=== PATIENT | male | born 1945 | race Caucasian/White ===

== ENCOUNTER 2017-09-11 18:09 | Inpatient (IN) | payer MEDICARE, OTHER ==
[~2017-09-11] VITALS: Ht 180.3 cm; Wt 90.5 kg
[~2017-09-11 18:09] MED LIST: AMLO5TAB22 PO; KCL10C PO; OMEP20CA5; PRAV20 PO; PRED20 PO; ST JTAB PO; SUPETAB30 PO; ZITH250T PO
[2017-09-11 18:13] VITALS: BP 188/128; PULSE 99; RESP 19; TEMP 98; O2SAT 97
[2017-09-11] MEDS ORDERED: SODIUM CHLOR 0.9% 1000 ML INJ 1,000 ML IV ONE (19:15)
[2017-09-11] MEDS ORDERED: ONDANSETRON HCL 4 MG/2 ML VIAL IV PUSH PRN (19:15)
[2017-09-11] MEDS ORDERED: LORazepam 2 MG/ML VIAL IV PUSH ONE (19:15)
[2017-09-11] MEDS ORDERED: FLUMAZENIL 0.5 MG/5 ML VIAL IV PUSH PRN (19:15)
[2017-09-11] MEDS ORDERED: LORazepam 2 MG/ML VIAL IV PUSH PRN ×4 (19:15)
[2017-09-11 19:46] LABS: AUTOMATED NEUTROPHIL # 7.4 TH/MM3 (1.8-7.7); BASOPHIL # 0.1 TH/MM3 (0-0.2); BASOPHIL % 0.6 % (0.0-2.0); EOSINOPHIL % 0.3 % (0.0-4.0); HEMATOCRIT 45.8 % (39.0-51.0); HEMOGLOBIN 16.2 GM/DL (13.0-17.0); LYMPH % 15.3 % (9.0-44.0); LYMPHOCYTE # 1.5 TH/MM3 (1.0-4.8); MEAN CELL VOLUME 92.4 FL (80.0-100.0); MEAN CORPUSCULAR HEMOGLOBIN 32.7 PG (27.0-34.0); MEAN CORPUSCULAR HGB CONC 35.3 % (32.0-36.0); MEAN PLATELET VOLUME 7.4 FL (7.0-11.0); MONO % 6.7 % (0.0-8.0); MONOCYTE # 0.6 TH/MM3 (0-0.9); NEUT % 77.1 % (16.0-70.0); PLATELET COUNT 258 TH/MM3 (150-450); RED BLOOD COUNT 4.95 MIL/MM3 (4.50-5.90); RED CELL DISTRIBUTION WIDTH 14.1 % (11.6-17.2); WHITE BLOOD COUNT 9.6 TH/MM3 (4.0-11.0)
[2017-09-11 19:56] LABS: ALBUMIN 4.4 GM/DL (3.4-5.0); ALT (GPT) 34 U/L (12-78); AST (GOT) 40 U/L (15-37); BICARBONATE 20.6 MEQ/L (21.0-32.0); BLOOD UREA NITROGEN 19 MG/DL (7-18); CALCIUM 9.1 MG/DL (8.5-10.1); CHLORIDE 103 MEQ/L (98-107); CREATININE 0.82 MG/DL (0.60-1.30); GLOMERULAR FILTRATION RATE 92 ML/MIN (>89); GLUCOSE,RANDOM 71 MG/DL (74-106); SODIUM (NA) 138 MEQ/L (136-145)
--- NOTE | 2017-09-11 20:01 | RADRPT ---
EXAM DATE/TIME: 09/11/2017 19:19 [facility] COMPARISON: No previous studies available for comparison. INDICATIONS : Trauma; fall. RADIATION DOSE: 48.30 CTDIvol (mGy) MEDICAL HISTORY : Cardiovascular disease. Hypertension. Gastroesophageal reflux disease.Leukemia, ETOH abuse SURGICAL HISTORY : None. ENCOUNTER: Initial ACUITY: 1 day PAIN SCALE: 5/10 LOCATION: cranial TECHNIQUE: Multiple contiguous axial images were obtained of the head. Using automated exposure control and adj ustment of the mA and/or kV according to patient size, radiation dose was kept as low as reasonably a chievable to obtain optimal diagnostic quality images. DICOM format image data is available electro nically for review and comparison. FINDINGS: CEREBRUM: The ventricles are normal for age. No evidence of midline shift, mass lesion, hemorrhage or acute in farction. No extra-axial fluid collections are seen. POSTERIOR FOSSA: The cerebellum and brainstem are intact. The 4th ventricle is midline. The cerebellopontine angle i s unremarkable. EXTRACRANIAL: The visualized portion of the orbits is intact. SKULL: The calvaria is intact. No evidence of skull fracture. CONCLUSION: No acute findings in the brain. Hung Rojas MD on September 11, 2017 at 19:57 Board Certified Radiologist. This report was verified electronically.
--- NOTE | 2017-09-11 20:05 | PD ---
HPI Chief Complaint: Alcohol/Drug Intoxication Time Seen by Provider: 18:54 Travel History International Travel<30 days: No Contact w/Intl Traveler<30days: No Traveled to known affect area: No History of Present Illness HPI 72-year-old male that presents to the ED for evaluation of "the shakes". Per patient and friends who are present in the room his been abusing alcohol a lot more recently. Per patient he has a history of depression although he has not been diagnosed with a his been dealing with depression by drinking alcohol. Per patient he lives at an [facility] and when asked why the patient has not seen a psychiatrist she says that "the nurse will not let me ". Unclear as to if patient has seen anybody for this but appears that patient has been having some falls and per friends in the room he apparently today told them that he wanted to end his life with alcohol and when the friend's went to see him today in his assisted living facility he was on the floor having fallen today. Per patient he last drank last night. Per patient he has had shakes in the past but the tremor has been more severe this time. Doesn't seem to be going away. Mainly on the upper extremities. Denies any history of seizures. Denies hitting his head or losing consciousness at that he cannot really tell me if he fell or not. He does tell me that he has fallen multiple times the past couple of days. Patient denies any substance abuse. Per patient he believes that he takes blood thinners but he is not sure as to why he takes. Smells heavily of alcohol. PFSH Past Medical History Anxiety: Yes Depression: Yes Cancer: Yes (LEUKEMIA-REMISSION) Cardiac Catheterization: Yes Cardiovascular Problems: Yes High Cholesterol: Yes Diminished Hearing: No Gastrointestinal Disorders: Yes GERD: Yes Genitourinary: Yes (ENLARGED PROSTATE; FREQ UTI'S) Hypertension: Yes Psychiatric: Yes (HX OF A NERVOUS BREAKDOWN) Ulcer: Yes Past Surgical History Coronary Stent: Yes (04/2013) Other Surgery: No Social History Alcohol Use: Yes ("A LOT") Tobacco Use: Yes (2 PPD) Substance Use: No Allergies-Medications (Allergen,Severity, Reaction): Coded Allergies: No Known Allergies (Verified Adverse Reaction, Unknown, 09/11/17) Reported Meds & Prescriptions Reported Meds & Active Scripts Active Deltasone 20 Mg Tab (Prednisone) 20 Mg Tab 20 Mg PO BID 5 Days Zithromax Z-Rom (Azithromycin) 250 Mg Tab 250 Mg PO DIRECTED 500 MG (2 TABLETS) PO ON DAY 1, THEN 250 MG (1 TABLET) PO ON DAYS 2 TO 5. Reported Celebrex (Celecoxib) 100 Mg Cap 100 Mg PO BID Gabapentin 100 Mg Cap 100 Mg PO TID Potassium Chloride ER (Potassium Chloride) 10 Meq Cap 10 Meq PO DAILY Coumadin (Warfarin) 2 Mg Tab 2 Mg PO DAILY Aspirin 81 Mg Chew 81 Mg CHEW DAILY Amlodipine (Amlodipine Besylate) 5 Mg Tab 5 Mg PO DAILY Pravastatin 20 Mg Tab 20 Mg PO DAILY Trazodone (Trazodone HCl) 100 Mg Tablet 200 Mg PO HS B12 (Cyanocobalamin) 1,000 Mcg Tab Furosemide 40 Mg Tab 40 Mg PO DAILY Ativan (Lorazepam) 0.5 Mg Tab 0.5 Mg PO Q8H PRN Theragran M (Multivitamins/Minerals Therapeutic) 1 Tab Tab 50 Mg PO DAILY KCl 10 Meq Cap (Potassium Chloride) 10 Meq Capcr 10 Meq PO DAILY Pravastatin Sodium 20 Mg Tab 1 Tab PO HS Amlodipine Besylate 5 mg (Amlodipine Besylate) 5 Mg Tab 1 Tab PO DAILY Aspirin Ec Low Strength (Aspirin) 81 Mg Tab 81 Mg PO DAILY Prilosec 20 mg (Omeprazole) 20 Mg Capcr 40 Review of Systems ROS Limitations: Intoxication Except as stated in HPI: all other systems reviewed are Neg Physical Exam Exam Limitations: Intoxication Narrative GENERAL: SKIN: Warm and dry. HEAD: Atraumatic. Normocephalic. EYES: Pupils equal and round. No scleral icterus. No injection or drainage. ENT: No nasal bleeding or discharge. Mucous membranes pink and moist. Tongue is midline. No uvula deviation. NECK: Trachea midline. No JVD. CARDIOVASCULAR: Regular rate and rhythm. No murmurs, S3, S4. RESPIRATORY: No accessory muscle use. Clear to auscultation. Breath sounds equal bilaterally. GASTROINTESTINAL: Abdomen soft, non-tender, nondistended. Hepatic and splenic margins not palpable. MUSCULOSKELETAL: Extremities without clubbing, cyanosis, or edema. No obvious deformities. Full range of motion of the upper and lower extremities bilaterally. 2+ pulses bilaterally. No lumbar, thoracic, cervical spine tenderness to palpation. NEUROLOGICAL: Awake and alert. No obvious cranial nerve deficits. Motor grossly within normal limits. Five out of 5 muscle strength in the arms and legs. Normal speech. PSYCHIATRIC: Appropriate mood and affect; insight and judgment normal. Data Data Last Documented VS Vital Signs Date Time Temp Pulse Resp B/P (MAP) Pulse Ox O2 Delivery O2 Flow Rate FiO2 09/11/17 20:13 87 18 98 Room Air 09/11/17 18:13 98.0 188/128 (148) Orders Orders Complete Blood Count With Diff (09/11/17:) Comprehensive Metabolic Panel (09/11/17:) Thyroid Stimulating Hormone (09/11/17:) Iv Access Insert/Monitor (09/11/17:) Psych Screen (09/11/17:) Lorazepam Inj (Ativan Inj) (09/11/17 19:15) Drug Screen, Random Urine (09/11/17:) Alcohol (Ethanol) (09/11/17:) Salicylates (Aspirin) (09/11/17:) Tylenol (Acetaminophen) (09/11/17:) Sodium Chlor 0.9% 1000 Ml Inj (Ns 1000 M (09/11/17 19:15) Ct Brain W/O Iv Contrast(Rout) (09/11/17 ) Alcohol Withdrawal Asmt-Ciwa ONCE (09/11/17 19:08) Ondansetron Inj (Zofran Inj) (09/11/17 19:15) Flumazenil Inj (Romazicon Inj) (09/11/17 19:15) Lorazepam (Ativan) (09/11/17 19:15) Lorazepam Inj (Ativan Inj) (09/11/17 19:15) Lorazepam (Ativan) (09/11/17 19:15) Lorazepam Inj (Ativan Inj) (09/11/17 19:15) Lorazepam Inj (Ativan Inj) (09/11/17 19:15) Lorazepam Inj (Ativan Inj) (09/11/17 19:15) Ct Cerv Spine W/O Contrast (09/11/17 ) Chlordiazepoxide (Librium) (09/11/17 20:30) Labs Laboratory Tests Test 09/11/17 19:10 White Blood Count 9.6 TH/MM3 Red Blood Count 4.95 MIL/MM3 Hemoglobin 16.2 GM/DL Hematocrit 45.8 % Mean Corpuscular Volume 92.4 FL Mean Corpuscular Hemoglobin 32.7 PG Mean Corpuscular Hemoglobin Concent 35.3 % Red Cell Distribution Width 14.1 % Platelet Count 258 TH/MM3 Mean Platelet Volume 7.4 FL Neutrophils (%) (Auto) 77.1 % Lymphocytes (%) (Auto) 15.3 % Monocytes (%) (Auto) 6.7 % Eosinophils (%) (Auto) 0.3 % Basophils (%) (Auto) 0.6 % Neutrophils # (Auto) 7.4 TH/MM3 Lymphocytes # (Auto) 1.5 TH/MM3 Monocytes # (Auto) 0.6 TH/MM3 Eosinophils # (Auto) 0.0 TH/MM3 Basophils # (Auto) 0.1 TH/MM3 CBC Comment DIFF FINAL Differential Comment Blood Urea Nitrogen 19 MG/DL Creatinine 0.82 MG/DL Random Glucose 71 MG/DL Total Protein 8.4 GM/DL Albumin 4.4 GM/DL Calcium Level 9.1 MG/DL Alkaline Phosphatase 135 U/L Aspartate Amino Transf (AST/SGOT) 40 U/L Alanine Aminotransferase (ALT/SGPT) 34 U/L Total Bilirubin 0.7 MG/DL Sodium Level 138 MEQ/L Potassium Level 4.0 MEQ/L Chloride Level 103 MEQ/L Carbon Dioxide Level 20.6 MEQ/L Anion Gap 14 MEQ/L Estimat Glomerular Filtration Rate 92 ML/MIN Thyroid Stimulating Hormone 3rd Gen 1.950 uIU/ML Salicylates Level 3.2 MG/DL Acetaminophen Level LESS THAN 2.0 MCG/ML Ethyl Alcohol Level 90 MG/DL MDM Medical Decision Making Medical Screen Exam Complete: Yes Emergency Medical Condition: Yes Medical Record Reviewed: Yes Interpretation(s) Last Impressions Head CT 09/11/17 0000 Signed Impressions: Service Date/Time: Monday, September 11, 2017 19:19 - CONCLUSION: No acute findings in the brain. Hung Rojas MD Cervical Spine CT 09/11/17 0000 Signed Impressions: Service Date/Time: Monday, September 11, 2017 19:19 - CONCLUSION: No evidence of fracture or spondylolisthesis. Multilevel fusions. Hung Rojas MD CBC & BMP Diagram 09/11/17 19:10 Total Protein 8.4 H, Albumin 4.4, Calcium Level 9.1, Alkaline Phosphatase 135 H , Aspartate Amino Transf (AST/SGOT) 40 H, Alanine Aminotransferase (ALT/SGPT) 34 , Total Bilirubin 0.7 tox positive for alcohol of 90. Differential Diagnosis Alcohol abuse versus alcohol dependence versus fall versus seizure versus tremor versus alcohol withdrawals versus depression Narrative Course 72-year-old male that presents to the ED for evaluation of fall and alcohol. Patient was properly examined and was found to have signs and symptoms which appear to be consistent with alcohol abuse secondary to depression that is currently not being treated. Patient does tell me that he does feel like his been a and his life he continues to drink. He wants help. Per patient he doesn 't want to see a psychiatrist. My physical exam he does appear to have a tremor the gets worse with movement on both upper extremities. No sign of lower extremity tremor. No sign of seizure-like activity at this time. This appears to be likely alcohol withdrawal. Imaging and labs were ordered. Patient agrees to proceed. Patient was given Ativan as well as IV fluids. Labs and imaging showed positive for alcohol. Labs and imaging were essentially unremarkable. Patient was reassured. At this time recommendation as patient does want see psychiatry for his depression states the patient will be medically cleared. Okay to be seen by psych. Diagnosis Primary Impression: Depression Qualified Codes: F33.1 - Major depressive disorder, recurrent, moderate Additional Impression: Alcohol dependence Qualified Codes: F10.29 - Alcohol dependence with unspecified alcohol-induced disorder Dave Renner Sep 11, 2017 20:05
[2017-09-11 20:06] LABS: ACETAMINOPHEN LESS THAN 2.0 MCG/ML (10.0-30.0); ALKALINE PHOSPHATASE 135 U/L (45-117); TOTAL BILIRUBIN ADULT 0.7 MG/DL (0.2-1.0); TOTAL PROTEIN 8.4 GM/DL (6.4-8.2)
[2017-09-11] MEDS ORDERED: TRAZ100T10 PO (20:13)
[2017-09-11] MEDS ORDERED: AMLO5TAB2 PO (20:13)
[2017-09-11] MEDS ORDERED: FURO40TA PO (20:13)
[2017-09-11] MEDS ORDERED: ASPI-516 CHEW (20:13)
[2017-09-11] MEDS ORDERED: CELE100C PO (20:13)
[2017-09-11] MEDS ORDERED: CYAN1TAB24 (20:13)
[2017-09-11] MEDS ORDERED: LORA-392 PO (20:13)
[2017-09-11] MEDS ORDERED: GABA100C4 PO (20:13)
[2017-09-11] MEDS ORDERED: POTA10CA PO (20:13)
[2017-09-11] MEDS ORDERED: PRAV20TA2 PO (20:13)
[2017-09-11] MEDS ORDERED: COUM2TAB PO (20:13)
--- NOTE | 2017-09-11 20:16 | RADRPT ---
EXAM DATE/TIME: 09/11/2017 19:19 [facility] COMPARISON: No previous studies available for comparison. INDICATIONS : Trauma; fall. RADIATION DOSE: 42.99 CTDIvol (mGy) MEDICAL HISTORY : Cardiovascular disease. Hypertension. Gastroesophageal reflux disease.Leukemia, ETOH abuse SURGICAL HISTORY : None. ENCOUNTER: Initial ACUITY: 1 day PAIN SCALE: 5/10 LOCATION: neck TECHNIQUE: Volumetric scanning of the cervical spine was performed. Multiplanar reconstructions in the sagittal, coronal and oblique axial planes were performed. Using automated exposure control and adjustment o f the mA and/or kV according to patient size, radiation dose was kept as low as reasonably achievable to obtain optimal diagnostic quality images. DICOM format image data is available electronically f or review and comparison. FINDINGS: The overall alignment of the cervical vertebral bodies is maintained. There is fusion of C3 and C4 a nd fusion of C5 and C6 with intact posterior fusion mass and rudimentary disc space anteriorly at bot h of these levels. No evidence of spondylolisthesis. The atlantoaxial articulation is intact with m oderately advanced degenerative changes between the dens and the anterior arch of C1. The posterior elements are in normal alignment with fusion of the facet joints at the same levels as the vertebral body. There is fusion of the spinous processes of T1 and T2. The bony spinal canal is normal in dim ension. No significant scoliosis or curvature in frontal projection. On the axial images, no fractu re is seen. There is moderate severity right-sided bony neural foraminal stenosis at C4-5, mild bila teral stenosis at C5-6. In the upper thoracic spine, there is a curvature convex towards the left, i ncompletely included in the [id number]. CONCLUSION: No evidence of fracture or spondylolisthesis. Multilevel fusions. Hung Rojas MD on September 11, 2017 at 20:11 Board Certified Radiologist. This report was verified electronically.
[2017-09-11 20:56] VITALS: BP 178/94; PULSE 79; RESP 20; O2SAT 97
[2017-09-12] MEDS: LORazepam 1 MG TAB PO PRN ×3 (04:11→20:55)
[2017-09-12 04:13] VITALS: BP 176/89; PULSE 67; RESP 16; O2SAT 97
--- NOTE | 2017-09-12 10:02 | HHI.HP ---
Provisional Diagnosis Admission Date [place]. Adjustment disorder with mixed anxiety and depressed mood, alcohol use disorder Certification of Person's Competence To Provide Express and Informed Consent I have personally examined Prabhu Galvin , a person being served at [facility] on, Sep 12, 2017 09:55. Express and informed consent means consent voluntarily given in writing, by a competent person, after sufficient explanation and disclosure of the subject matter involved to enable the person to make a knowing and willful decision without any element of force, fraud, deceit, duress, or other form of constraint or coercion. This person is 18 years of age or older, is not now known to be incompetent to consent to treatment with a guardian advocate, and does not have a health care surrogate or proxy currently making medical treatment decisions. I have found this person to be one of the following: [x] Competent to provide express and informed consent, as defined above, for voluntary admission to this facility and is competent to provide express and informed consent for treatment. He/she has the consistent capacity to make well reasoned, willful, and knowing decisions concerning his or her medical or mental health treatment. The person fully and consistently understands the purpose of the admission for examination/placement and is fully capable of personally exercising all rights assured [place] Incompetent to provide express and informed consent to voluntary admission, and this is incompetent to provide express and informed consent to treatment. The person must be transferred to involuntary status and a petition for a guardian advocate filed with the Circuit Court. [] Refusing to provide express and informed consent to voluntary admission but is competent to provide express and informed consent for treatment. The person must be discharged or transferred to involuntary status. Form shall be completed within 24 hours of a person's arrival at the receiving facility and filed in the clinical record of each person: 1. Admitted on a voluntary basis 2. Permitted to provide express and informed consent to his/her own treatment 3. Allowed to transfer from involuntary to voluntary status 4. Prior to permitting a person to consent to his or her own treatment after having been previously found incompetent to consent to treatment. History of Present Illness Capacity: Has Capacity HPI Patient is a 72-year-old man, , domiciled in [facility] since November 2016 , with past psychiatric history significant for depression, recent alcohol abuse , no psychiatric admissions, no suicide attempt or self-injurious behavior with a past medical history significant for hypertension, arthritis, asthma, was brought in by friends to the ED due to recent alcohol intoxication as well as having endorsed to his friends that he wanted to end his life which psychiatry was consulted for evaluation. Patient was found sitting in hospital bed, cooperative. Patient states that he was brought in by his friends because he was feeling depressed as well as having frequent falls secondary to alcohol abuse recently. Patient states that he has not been happy at his assisted living facility and had noticed to have compounded his depression that he had been experiencing since the passing of his close friend over a year ago. He reports having decreased sleep, appetite, energy, along with feeling depressed and feeling helpless and hopeless at times but denies any suicide ideations otherwise for ED note at endorses to his friends. Patient also reports and had frequent falls recently due to his alcohol intoxication which has increased recently. Patient this time reports feeling "okay" denies any SI, HI, perception service of delusions. Patient requests voluntary admission to start antidepressant treatment as well as address his recent alcohol abuse. Family history: Denies Past psychiatric history: 3 psychiatric diagnoses of depression, denies previous hospitalization, suicide attempts of his behavior, denies any history of abuse. Patient reports having been treated for depression by his primary care doctor, Dr. Barrios which she has been prescribed trazodone and Ativan. Patient reports remote use of Thorazine 13 years ago. Substance use history: Tobacco use, alcohol use daily for the past week last drink was 2 days ago denies any illicit drug use. Past medical history: Asthma, hypertension, arthritis Social history: , domicile in [facility] since November 2016, no legal history. Collateral contacts include friends (Marta and Akash Kovacs - [phone]) Review of Systems Except as stated in HPI: all other systems reviewed are Neg Past Psych History Psychological trauma history denies Violence risk - others (6 mos) low Violence risk - self (6 mos) elevated due to recent suicidal ideation, worsening depression and alcohol use Past Family Social History Coded Allergies: No Known Allergies (Verified Adverse Reaction, Unknown, 09/11/17) Active Scripts Prednisone (Deltasone 20 Mg Tab) 20 Mg Tab, 20 MG PO BID for 5 Days, TAB Prov:See Mclean MD 06/19/15 Azithromycin (Zithromax Z-Rom) 250 Mg Tab, 250 MG PO DIRECTED, #6 TAB 500 MG (2 TABLETS) PO ON DAY 1, THEN 250 MG (1 TABLET) PO ON DAYS 2 TO 5. Prov:See Mclean MD 06/19/15 Reported Medications Celecoxib (Celebrex) 100 Mg Cap, 100 MG PO BID for Pain Management, CAP 0 Refills 09/11/17 Gabapentin (Gabapentin) 100 Mg Cap, 100 MG PO TID, #90 CAP 0 Refills 09/11/17 Potassium Chloride ER (Potassium Chloride ER) 10 Meq Cap, 10 MEQ PO DAILY for Electrolyte Replacement, #30 CAP 0 Refills 09/11/17 Warfarin (Coumadin) 2 Mg Tab, 2 MG PO DAILY for Prevent Blood Clot, #30 TAB 0 Refills 09/11/17 Aspirin (Aspirin) 81 Mg Chew, 81 MG CHEW DAILY, TAB 0 Refills 09/11/17 Amlodipine (Amlodipine) 5 Mg Tab, 5 MG PO DAILY for Blood Pressure Management, # 30 TAB 0 Refills 09/11/17 Pravastatin (Pravastatin) 20 Mg Tab, 20 MG PO DAILY for Cholesterol Management, #30 TAB 0 Refills 09/11/17 Trazodone (Trazodone) 100 Mg Tablet, 200 MG PO HS for Control Depression, #30 TAB 0 Refills 09/11/17 Cyanocobalamin (B12) 1,000 Mcg Tab 09/11/17 Furosemide (Furosemide) 40 Mg Tab, 40 MG PO DAILY, #30 TAB 0 Refills 09/11/17 Lorazepam (Ativan) 0.5 Mg Tab, 0.5 MG PO Q8H Y for ANXIETY AND/OR AGITATION, TAB 0 Refills 09/11/17 Multiple Vitamins W/ Minerals (Theragran M) 1 Tab Tab, 50 MG PO DAILY, TAB 06/19/15 Potassium Chloride (KCl 10 Meq Cap) 10 Meq Capcr, 10 MEQ PO DAILY, CAPCR 06/19/15 Pravastatin Sodium (Pravastatin Sodium) 20 Mg Tab, 1 TAB PO HS, TAB 06/19/15 Amlodipine Besylate 5 mg (Amlodipine Besylate 5 mg) 5 Mg Tab, 1 TAB PO DAILY, TAB 06/19/15 Aspirin (Aspirin Ec Low Strength) 81 Mg Tab, 81 MG PO DAILY, TAB 06/19/15 Omeprazole 20 mg (Prilosec 20 mg) 20 Mg Capcr, 40 04/28/07 Current Medications Medications (Trade) Dose Ordered Sig/Yanely Route Start Time Stop Time Status Last Admin (Zofran Inj) 4 mg Q8H PRN IV PUSH 09/11/17 19:15 (Romazicon Inj) 0.2 mg Q1M PRN IV PUSH 09/11/17 19:15 (Ativan) 1 mg Q4H PRN PO 09/11/17 19:15 09/12/17 08:49 (Ativan Inj) 1 mg Q4H PRN IV PUSH 09/11/17 19:15 (Ativan) 2 mg Q2H PRN PO 09/11/17 19:15 09/12/17 00:00 (Ativan Inj) 2 mg Q2H PRN IV PUSH 09/11/17 19:15 (Ativan Inj) 2 mg Q1H PRN IV PUSH 09/11/17 19:15 (Ativan Inj) 2 mg Q15M PRN IV PUSH 09/11/17 19:15 Family Psych History denies Social History , domicile in [facility] since November 2016, no legal history. Collateral contacts include friends (Marta and Akash Kovacs - [phone]) Patient's Strengths (min. 2) verbal and communicative Physical Exam Patient not noted to be in acute distress, no gross motor abnormalities, no tremors or EPS, no noted psychomotor retardation or agitation. Vital Signs Vital Signs Date Time Temp Pulse Resp B/P (MAP) Pulse Ox O2 Delivery O2 Flow Rate FiO2 09/12/17 04:13 67 16 176/89 (118) 97 Room Air 09/11/17 18:13 98.0 Lab Results Test 09/11/17 19:10 09/11/17 20:00 White Blood Count 9.6 TH/MM3 Red Blood Count 4.95 MIL/MM3 Hemoglobin 16.2 GM/DL Hematocrit 45.8 % Mean Corpuscular Volume 92.4 FL Mean Corpuscular Hemoglobin 32.7 PG Mean Corpuscular Hemoglobin Concent 35.3 % Red Cell Distribution Width 14.1 % Platelet Count 258 TH/MM3 Mean Platelet Volume 7.4 FL Neutrophils (%) (Auto) 77.1 % Lymphocytes (%) (Auto) 15.3 % Monocytes (%) (Auto) 6.7 % Eosinophils (%) (Auto) 0.3 % Basophils (%) (Auto) 0.6 % Neutrophils # (Auto) 7.4 TH/MM3 Lymphocytes # (Auto) 1.5 TH/MM3 Monocytes # (Auto) 0.6 TH/MM3 Eosinophils # (Auto) 0.0 TH/MM3 Basophils # (Auto) 0.1 TH/MM3 CBC Comment DIFF FINAL Differential Comment Blood Urea Nitrogen 19 MG/DL Creatinine 0.82 MG/DL Random Glucose 71 MG/DL Total Protein 8.4 GM/DL Albumin 4.4 GM/DL Calcium Level 9.1 MG/DL Alkaline Phosphatase 135 U/L Aspartate Amino Transf (AST/SGOT) 40 U/L Alanine Aminotransferase (ALT/SGPT) 34 U/L Total Bilirubin 0.7 MG/DL Sodium Level 138 MEQ/L Potassium Level 4.0 MEQ/L Chloride Level 103 MEQ/L Carbon Dioxide Level 20.6 MEQ/L Anion Gap 14 MEQ/L Estimat Glomerular Filtration Rate 92 ML/MIN Thyroid Stimulating Hormone 3rd Gen 1.950 uIU/ML Salicylates Level 3.2 MG/DL Acetaminophen Level LESS THAN 2.0 MCG/ML Ethyl Alcohol Level 90 MG/DL Urine Opiates Screen NEG Urine Barbiturates Screen NEG Urine Amphetamines Screen NEG Urine Benzodiazepines Screen NEG Urine Cocaine Screen NEG Urine Cannabinoids Screen NEG Mental Status Examination Appearance: Appropriate Consciousness: Alert Orientation: Person, Place, Date/Time Speech: Unremarkable Language: Adequate Fund of Knowledge: Inadequate Attention and Concentration: Adequate Memory: Unremarkable Mood: Sad Affect: Sad Thought Process & Associations: Intact, Linear Thought Content: Appropriate Hallucination Type: None Delusion Type: None Suicidal Ideation: Yes Suicidal Plan: No Suicidal Intention: No Homicidal Ideation: No Homicidal Plan: No Homicidal Intention: No Insight: Fair Judgment: Impulsive Assessment & Plan Problem List: (1) Adjustment disorder with mixed anxiety and depressed mood ICD Codes: F43.23 - Adjustment disorder with mixed anxiety and depressed mood (2) Alcohol dependence ICD Codes: F10.20 - Alcohol dependence, uncomplicated Status: Acute Assessment & Plan Estimated LOS: 5-7 days. Patient is a 72-year-old man who carries a diagnoses of depression, alcohol abuse, no prior psychiatric admissions, suicide attempts of his behavior who was presented to the ER due to worsening depression, increase in alcohol use in the context of psychosocial stressors. Patient with recent alcohol binge for over a week which patient will be at risk for withdrawal. We will have patient on CIWA protocol, withdrawal precautions. We will defer from starting antidepressant medications until patient has been medically cleared as well as having baseline EKG along with labs. Collateral information pending. Patient will be admitted under voluntary status. Discharge planning in progress. Discharge Planning Patient to return back to his [facility] when psychiatrically stable. Problem Qualifiers (1) Alcohol dependence: Qualified Codes: F10.29 - Alcohol dependence with unspecified alcohol-induced disorder Karl Smith MD Sep 12, 2017 10:02
[2017-09-12] MEDS ORDERED: MAGNESIUM HYDROXIDE SUSP 30 ML CUP PO PRN (10:15)
[2017-09-12] MEDS ORDERED: ALUMINUM/MAGNESIUM/SIMETH 30 ML CUP PO PRN (10:15)
[2017-09-12] MEDS ORDERED: diphenhydrAMINE HCL 50 MG CAP PO PRN (10:15)
[2017-09-12 11:52] VITALS: BP 175/90; PULSE 91; RESP 18; TEMP 97.8; O2SAT 97
[2017-09-12] MEDS: hydrOXYzine HCL 50 MG TAB PO PRN (13:25)
[2017-09-12] MEDS: LORazepam 2 MG TAB PO PRN ×3 (13:25→16:28)
[2017-09-12] MEDS ORDERED: DO NOT ADM ANY ANTICOAGULANT DRUGS OTHER PRN (15:00)
--- NOTE | 2017-09-12 15:00 | PD.CONS ---
HPI Service [facility] Consult Requested By Primary Care Physician Unknown Diagnoses: History of Present Illness Mr. Galvin is a 72 year old male. He is admitted secondary to suicidal ideations and depression. He has alcohol abuse at baseline and has been showing signs of DTs. CIWA protocol has been initiated at admit. When seen he has some tremors. No complaints of nausea, vomiting, diarrhea, hallucinations, or paraesthesias. No other complaints. Review of Systems Constitutional: DENIES: Fever, Chills, Night Sweats Eyes: DENIES: Blurred vision, Diplopia, Eye inflammation, Eye pain Ears, nose, mouth, throat: DENIES: Tinnitus, Hearing loss, Vertigo, Nasal discharge Respiratory: DENIES: Cough, Snoring, Wheezing Cardiovascular: DENIES: Chest pain, Palpitations, Syncope Gastrointestinal: DENIES: Abdominal pain, Black stools, Bloody stools Musculoskeletal: DENIES: Joint pain, Muscle aches, Stiffness, Joint Swelling Integumentary: DENIES: Abnormal pigmentation, Nail changes, Pruritus, Rash Hematologic/lymphatic: DENIES: Bruising, Lymphadenopathy Immunologic/allergic: DENIES: Eczema, Urticaria Neurologic: COMPLAINS OF: Tremor, DENIES: Abnormal gait, Headache, Paresthesias Psychiatric: COMPLAINS OF: Depression, Suicidal Ideation, DENIES: Anxiety, Confusion Past Family Social History Allergies: Coded Allergies: No Known Allergies (Verified Adverse Reaction, Unknown, 09/11/17) Past Medical History CHF HTN BPH General Anxiety Disorder Depression CAD Hyperlipidemia Hx of Stomach Ulcers Hx of Leukemia GERD Past Surgical History Coronary Stent 2012 Reported Medications Reported Meds & Active Scripts Active Deltasone 20 Mg Tab (Prednisone) 20 Mg Tab 20 Mg PO BID 5 Days Zithromax Z-Rom (Azithromycin) 250 Mg Tab 250 Mg PO DIRECTED 500 MG (2 TABLETS) PO ON DAY 1, THEN 250 MG (1 TABLET) PO ON DAYS 2 TO 5. Reported Celebrex (Celecoxib) 100 Mg Cap 100 Mg PO BID Gabapentin 100 Mg Cap 100 Mg PO TID Potassium Chloride ER (Potassium Chloride) 10 Meq Cap 10 Meq PO DAILY Coumadin (Warfarin) 2 Mg Tab 2 Mg PO DAILY Aspirin 81 Mg Chew 81 Mg CHEW DAILY Amlodipine (Amlodipine Besylate) 5 Mg Tab 5 Mg PO DAILY Pravastatin 20 Mg Tab 20 Mg PO DAILY Trazodone (Trazodone HCl) 100 Mg Tablet 200 Mg PO HS B12 (Cyanocobalamin) 1,000 Mcg Tab Furosemide 40 Mg Tab 40 Mg PO DAILY Ativan (Lorazepam) 0.5 Mg Tab 0.5 Mg PO Q8H PRN Theragran M (Multivitamins/Minerals Therapeutic) 1 Tab Tab 50 Mg PO DAILY KCl 10 Meq Cap (Potassium Chloride) 10 Meq Capcr 10 Meq PO DAILY Pravastatin Sodium 20 Mg Tab 1 Tab PO HS Amlodipine Besylate 5 mg (Amlodipine Besylate) 5 Mg Tab 1 Tab PO DAILY Aspirin Ec Low Strength (Aspirin) 81 Mg Tab 81 Mg PO DAILY Prilosec 20 mg (Omeprazole) 20 Mg Capcr 40 Active Ordered Medications Administered Medications Medications (Trade) Dose Ordered Sig/Yanely Route PRN Reason Start Time Stop Time Status Last Admin Dose Admin Lorazepam (Ativan) 1 mg Q4H PRN PO CIWA 8 - 10 09/11/17 19:15 09/12/17 08:49 Lorazepam (Ativan) 2 mg Q2H PRN PO CIWA 11-14 09/11/17 19:15 09/12/17 13:25 Hydroxyzine HCl (Atarax) 50 mg Q6H PRN PO ANXIETY 09/12/17 10:15 09/12/17 13:25 Family History CHF in Mother Social History 1/2 PPD nicotine, smoking Heavy alcohol use No illicit drug abuse Physical Exam Vital Signs Vital Signs Date Time Temp Pulse Resp B/P (MAP) Pulse Ox O2 Delivery O2 Flow Rate FiO2 09/12/17 11:52 97.8 91 18 175/90 (118) 97 09/12/17 04:13 67 16 176/89 (118) 97 Room Air 09/11/17 20:56 79 20 178/94 (122) 97 Room Air 09/11/17 20:13 87 18 98 Room Air 09/11/17 18:13 98.0 99 19 188/128 (148) 97 Physical Exam GENERAL: NAD, A&Ox3, fine tremors diffusely HEAD: Normocephalic. NECK: Supple, trachea midline. No lymphadenopathy. EYES: No scleral icterus. No injection or drainage. CARDIOVASCULAR: Regular rate and rhythm without murmurs, gallops, or rubs. RESPIRATORY: Breath sounds equal bilaterally. No accessory muscle use. GASTROINTESTINAL: Abdomen soft, non-tender, nondistended. MUSCULOSKELETAL: No cyanosis, or edema. SKIN: Warm and dry. NEURO: No focal neurological deficitis. Laboratory Laboratory Tests Test 09/11/17 19:10 09/11/17 20:00 White Blood Count 9.6 Red Blood Count 4.95 Hemoglobin 16.2 Hematocrit 45.8 Mean Corpuscular Volume 92.4 Mean Corpuscular Hemoglobin 32.7 Mean Corpuscular Hemoglobin Concent 35.3 Red Cell Distribution Width 14.1 Platelet Count 258 Mean Platelet Volume 7.4 Neutrophils (%) (Auto) 77.1 Lymphocytes (%) (Auto) 15.3 Monocytes (%) (Auto) 6.7 Eosinophils (%) (Auto) 0.3 Basophils (%) (Auto) 0.6 Neutrophils # (Auto) 7.4 Lymphocytes # (Auto) 1.5 Monocytes # (Auto) 0.6 Eosinophils # (Auto) 0.0 Basophils # (Auto) 0.1 CBC Comment DIFF FINAL Differential Comment Blood Urea Nitrogen 19 Creatinine 0.82 Random Glucose 71 Total Protein 8.4 Albumin 4.4 Calcium Level 9.1 Alkaline Phosphatase 135 Aspartate Amino Transf (AST/SGOT) 40 Alanine Aminotransferase (ALT/SGPT) 34 Total Bilirubin 0.7 Sodium Level 138 Potassium Level 4.0 Chloride Level 103 Carbon Dioxide Level 20.6 Anion Gap 14 Estimat Glomerular Filtration Rate 92 Thyroid Stimulating Hormone 3rd Gen 1.950 Salicylates Level 3.2 Acetaminophen Level LESS THAN 2.0 Ethyl Alcohol Level 90 Urine Opiates Screen NEG Urine Barbiturates Screen NEG Urine Amphetamines Screen NEG Urine Benzodiazepines Screen NEG Urine Cocaine Screen NEG Urine Cannabinoids Screen NEG Result Diagram: 09/11/17190909/11/171909 Assessment and Plan Problem List: (1) Adjustment disorder with mixed anxiety and depressed mood ICD Code: F43.23 - Adjustment disorder with mixed anxiety and depressed mood (2) Depression ICD Code: F32.9 - Major depressive disorder, single episode, unspecified Status: Acute (3) Alcohol dependence ICD Code: F10.20 - Alcohol dependence, uncomplicated Status: Acute Assessment and Plan 72 year old male admitted with Depression, suicidal ideations, and alcohol withdraw. Depression Suicidal Ideations Treatments per psychiatrist discretion ETOH Withdraw Delirium Tremens CIWA Protocol Follow clinically PRN Ativan Scheduled Librium for 3 days Adjust treatments if needed Follow DTs HTN Urgency Continue baseline treatments Add PRN Clonidine Treat DTs Follow BP Adjust treatments further if needed BPH No change to baseline treatment Follow clinically CHF CAD No exacerbations No chest pain Follow as an outpatient Hyperlipidemia No change to baseline treatment Follow as an outpatient Hx of Stomach Ulcers Hx of Leukemia No active disase Follow clinically GERD Substitute Lansoprazole DVT Prophylaxis Patient ambulatory Problem Qualifiers (1) Depression: Qualified Codes: F33.1 - Major depressive disorder, recurrent, moderate (2) Alcohol dependence: Qualified Codes: F10.29 - Alcohol dependence with unspecified alcohol-induced disorder Rex Trinidad MD Sep 12, 2017 15:00
[2017-09-12] MEDS: WARFARIN SOD 2 MG TAB PO SCH (16:00)
[2017-09-12] MEDS: ACETAMINOPHEN 325 MG TAB PO PRN (16:28)
[2017-09-12] MEDS: GABAPENTIN 100 MG CAP PO SCH (16:29)
[2017-09-12 18:00] VITALS: BP 153/86; PULSE 77; RESP 18; TEMP 97.3; O2SAT 96
[2017-09-12] MEDS ORDERED: traZODone HCL 100 MG TAB PO SCH (21:00)
[2017-09-12] MEDS: CELECOXIB 100 MG CAP PO SCH (22:15)
[2017-09-13 02:31] VITALS: BP 169/85; PULSE 72; RESP 18; TEMP 98.1; O2SAT 97
[2017-09-13] MEDS: ACETAMINOPHEN 325 MG TAB PO PRN ×2 (02:38→17:47)
[2017-09-13] MEDS: LORazepam 1 MG TAB PO PRN ×2 (02:38→09:50)
[2017-09-13 05:45] VITALS: BP 178/93; PULSE 89; RESP 18; TEMP 97.5; O2SAT 98
[2017-09-13] MEDS: cloNIDine HCL 0.1 MG TAB PO PRN ×2 (05:53→18:32)
[2017-09-13 07:10] VITALS: BP 130/90; PULSE 74; RESP 18; TEMP 97.5; O2SAT 97
[2017-09-13] MEDS: ASPIRIN 81 MG CHEW TAB CHEW SCH (09:00)
[2017-09-13] MEDS: GABAPENTIN 100 MG CAP PO SCH ×3 (09:00→17:47)
[2017-09-13] MEDS: MULTIVITAMINS/MINERALS THERAPEUTIC TAB PO SCH (09:00)
[2017-09-13] MEDS: LANSOPRAZOLE SOLUTAB 30 MG TAB NG SCH (09:00)
[2017-09-13] MEDS: CELECOXIB 100 MG CAP PO SCH ×2 (09:00→21:59)
[2017-09-13] MEDS: POTASSIUM CHLORIDE 10 MEQ CAP PO SCH (09:00)
[2017-09-13] MEDS: FUROSEMIDE 40 MG TAB PO SCH (09:00)
[2017-09-13] MEDS: PRAVASTATIN SOD 20 MG TAB PO SCH (09:00)
[2017-09-13] MEDS: amLODIPine BESYLATE 5 MG TAB PO SCH (09:00)
[2017-09-13] MEDS ORDERED: POTASSIUM CHLORIDE 10 MEQ CAP PO SCH (09:00)
[2017-09-13 10:39] LABS: BICARBONATE 24.9 MEQ/L (21.0-32.0); BLOOD UREA NITROGEN 20 MG/DL (7-18); CALCIUM 9.4 MG/DL (8.5-10.1); CHLORIDE 102 MEQ/L (98-107); CREATININE 0.77 MG/DL (0.60-1.30); GLOMERULAR FILTRATION RATE 99 ML/MIN (>89); GLUCOSE,RANDOM 118 MG/DL (74-106); SODIUM (NA) 137 MEQ/L (136-145)
[2017-09-13 10:41] LABS: CHOLESTEROL 246 MG/DL (120-200)
[2017-09-13 10:49] LABS: HDL CHOLESTEROL 98.2 MG/DL (40.0-60.0); LDL CHOLESTEROL 124 MG/DL (0-99); TRIGLYCERIDES 117 MG/DL (42-150)
--- NOTE | 2017-09-13 11:44 | HHI.PR ---
Subjective Remarks Patient has no complaints today. He feels his delirium tremens is under better control. No diarrhea. Objective Vital Signs Date Time Temp Pulse Resp B/P (MAP) Pulse Ox O2 Delivery O2 Flow Rate FiO2 09/13/17 07:10 97.5 74 18 130/90 (103) 97 09/13/17 05:45 97.5 89 18 178/93 (121) 98 09/13/17 02:31 98.1 72 18 169/85 (113) 97 09/12/17 18:00 97.3 77 18 153/86 (108) 96 09/12/17 11:52 97.8 91 18 175/90 (118) 97 I/O 09/12/17 09/12/17 09/12/17 09/13/17 09/13/17 09/13/17 06:59 14:59 22:59 06:59 14:59 22:59 Intake Total 1000 ml 360 ml 120 ml 240 ml Balance 1000 ml 360 ml 120 ml 240 ml Intake Oral 360 ml 120 ml 240 ml IV Total 1000 ml # Voids 1 Result Diagram: 09/11/17 1910 09/13/17 0930 Objective Remarks GENERAL: NAD, A&Ox3, fine global tremor HEAD: Normocephalic. NECK: Supple, trachea midline. No lymphadenopathy. EYES: No scleral icterus. No injection or drainage. CARDIOVASCULAR: Regular rate and rhythm without murmurs, gallops, or rubs. RESPIRATORY: Breath sounds equal bilaterally. No accessory muscle use. GASTROINTESTINAL: Abdomen soft, non-tender, nondistended. MUSCULOSKELETAL: No cyanosis, or edema. SKIN: Warm and dry. NEURO: No focal neurological deficitis. A/P Problem List: (1) Alcohol dependence ICD Code: F10.20 - Alcohol dependence, uncomplicated Status: Acute (2) Depression ICD Code: F32.9 - Major depressive disorder, single episode, unspecified Status: Acute (3) Adjustment disorder with mixed anxiety and depressed mood ICD Code: F43.23 - Adjustment disorder with mixed anxiety and depressed mood Assessment and Plan 72 year old male admitted with Depression, suicidal ideations, and alcohol withdraw. Depression Suicidal Ideations Treatments per psychiatrist discretion ETOH Withdraw Delirium Tremens Presently controlled CIWA Protocol Follow clinically PRN Ativan Scheduled Librium for 3 days total, then wean Adjust treatments if needed Follow DTs HTN Urgency Improving Continue baseline treatments Continue PRN Clonidine Treat DTs Follow BP Adjust treatments further if needed BPH No change to baseline treatment Follow clinically CHF CAD No exacerbations No chest pain Follow as an outpatient Hyperlipidemia No change to baseline treatment Follow as an outpatient Hx of Stomach Ulcers Hx of Leukemia No active disase Follow clinically GERD Substitute Lansoprazole DVT Prophylaxis Patient ambulatory Problem Qualifiers (1) Alcohol dependence: Qualified Codes: F10.29 - Alcohol dependence with unspecified alcohol-induced disorder (2) Depression: Qualified Codes: F33.1 - Major depressive disorder, recurrent, moderate Rex Trinidad MD Sep 13, 2017 11:43
--- NOTE | 2017-09-13 15:05 | HHI.PYPN ---
Subjective Remarks Patient initially seen by Dr. Karl Smith who did the initial psychiatric history and physical. I reviewed and agreed with it. I have done the initial psychiatric admission template orders. Patient seen in the [facility] with nurse Sarmad and apical student Alfredo patient is alert oriented calm cooperative white male appears stated age stating he has been in this [facility] for a few months. Prior had been in a rehabilitation prior to that was living with a girlfriend who has since . Patient denies any prior inpatient psychiatric hospitalizations or medications. He did see a psychiatrist around the of his son about 10 years ago is deaf his around that period of time also. And the within the past year of his girlfriend. Patient acknowledges sad mood decreased sleep crying spells, decreased energy and decreased concentration and attention mild irritability and isolation. He denies voices or visions with this denies drug use but acknowledges some increase use of alcohol. We denies any detox or rehabilitation or legal issues related to alcohol. At this time is vague if he would take the suicide pill. At the present time patient does meet criteria voluntary inpatient psychiatric hospitalization. I reviewed his orders. We'll start him on Remeron 15 mg at bedtime and Abilify 5 mg in the a.m. is also on the ciks protocol to address the possibility of withdrawal symptoms. We'll discontinue any other benzodiazepine. Patient also is quite dissatisfied with his present [facility] with the counselors discuss with them alternatives. Patient has no significant support group. Though he is somewhat spiritual we will have pastoral counseling see him also Review of Systems Constitutional: DENIES: Diaphoretic episodes, Fatigue, Fever, Weight gain, Weight loss, Chills, Dizziness, Change in appetite, Night Sweats Endocrine: DENIES: Heat/cold intolerance, Polydipsia, Polyuria, Polyphagia Eyes: DENIES: Blurred vision, Diplopia, Eye inflammation, Eye pain, Vision loss , Photosensitivity, Double Vision Ears, nose, mouth, throat: DENIES: Tinnitus, Hearing loss, Vertigo, Nasal discharge, Oral lesions, Throat pain, Hoarseness, Ear Pain, Running Nose, Epistaxis, Sinus Pain, Toothache, Odynophagia Respiratory: DENIES: Apneas, Cough, Snoring, Wheezing, Hemoptysis, Sputum production, Shortness of breath Cardiovascular: DENIES: Chest pain, Palpitations, Syncope, Dyspnea on Exertion , PND, Lower Extremity Edema, Orthopnea, Claudication Gastrointestinal: DENIES: Abdominal pain, Black stools, Bloody stools, Constipation, Diarrhea, Nausea, Vomiting, Difficulty Swallowing, Anorexia Genitourinary: DENIES: Sexual dysfunction, Urinary frequency, Urinary incontinence, Urgency, Hematuria, Dysuria, Nocturia, Penile Discharge, Testicular Pain, Testicular Swelling Musculoskeletal: DENIES: Joint pain, Muscle aches, Stiffness, Joint Swelling, Back pain, Neck pain Integumentary: DENIES: Abnormal pigmentation, Nail changes, Pruritus, Rash Hematologic/lymphatic: DENIES: Bruising, Lymphadenopathy Immunologic/allergic: DENIES: Eczema, Urticaria Neurologic: DENIES: Abnormal gait, Headache, Localized weakness, Paresthesias, Seizures, Speech Problems, Tremor, Poor Balance Psychiatric: COMPLAINS OF: Mood changes, Depression, Suicidal Ideation Mental Status Examination Appearance: Appropriate Consciousness: Alert Orientation: Person, Place, Date/Time Speech: Unremarkable Language: Adequate Fund of Knowledge: Inadequate Attention and Concentration: Adequate Memory: Unremarkable Mood: Sad Affect: Sad Thought Process & Associations: Intact, Linear Thought Content: Appropriate Hallucination Type: None Delusion Type: None Suicidal Ideation: Yes Suicidal Plan: No Suicidal Intention: No Homicidal Ideation: No Homicidal Plan: No Homicidal Intention: No Insight: Fair Judgment: Impulsive Results Labs Test 09/13/17 09:30 Blood Urea Nitrogen 20 MG/DL Creatinine 0.77 MG/DL Random Glucose 118 MG/DL Calcium Level 9.4 MG/DL Sodium Level 137 MEQ/L Potassium Level 3.5 MEQ/L Chloride Level 102 MEQ/L Carbon Dioxide Level 24.9 MEQ/L Anion Gap 10 MEQ/L Estimat Glomerular Filtration Rate 99 ML/MIN Triglycerides Level 117 MG/DL Cholesterol Level 246 MG/DL LDL Cholesterol 124 MG/DL HDL Cholesterol 98.2 MG/DL Cholesterol/HDL Ratio 2.50 RATIO Thyroid Stimulating Hormone 3rd Gen 2.990 uIU/ML Vitals/IOs Vital Signs Date Time Temp Pulse Resp B/P (MAP) Pulse Ox O2 Delivery O2 Flow Rate FiO2 09/13/17 07:10 97.5 74 18 130/90 (103) 97 09/12/17 04:13 Room Air Intake and Output 09/13/17 09/13/17 09/14/17 08:00 16:00 00:00 Intake Total 360 ml 360 ml Balance 360 ml 360 ml Assessment & Plan Problem List: (1) Adjustment disorder with mixed anxiety and depressed mood ICD Codes: F43.23 - Adjustment disorder with mixed anxiety and depressed mood (2) Alcohol dependence ICD Codes: F10.20 - Alcohol dependence, uncomplicated Status: Acute Assessment & Plan Estimated LOS: days patient continues depressed with vague suicidality. He is tearful. Some hopelessness especially related to placement issues Justification for Cont. Inpt. At this time patient will decompensate and placed in the lower level of care Discharge Planning She may become problematic Request HC Surrog/Guard Advoc?: No Problem Qualifiers (1) Alcohol dependence: Qualified Codes: F10.29 - Alcohol dependence with unspecified alcohol-induced disorder Chad Ram MD Sep 13, 2017 15:05
[2017-09-13 15:36] LABS: PROTHROMBIN TIME - PATIENT 10.6 SEC (9.8-11.6)
[2017-09-13] MEDS: WARFARIN SOD 2 MG TAB PO SCH (16:00)
[2017-09-13 18:23] VITALS: BP 180/78; PULSE 90; RESP 18; TEMP 98; O2SAT 98
[2017-09-13] MEDS: traZODone HCL 100 MG TAB PO SCH (21:59)
[2017-09-13] MEDS: MIRTAZAPINE 15 MG TAB PO SCH (21:59)
[2017-09-14 06:19] VITALS: BP 123/74; PULSE 70; RESP 18; TEMP 97.5; O2SAT 97
[2017-09-14] MEDS: amLODIPine BESYLATE 5 MG TAB PO SCH (08:12)
[2017-09-14] MEDS: FUROSEMIDE 40 MG TAB PO SCH (08:12)
[2017-09-14] MEDS: CELECOXIB 100 MG CAP PO SCH ×2 (08:12→21:15)
[2017-09-14] MEDS: ARIPiprazole 5 MG TAB PO SCH (08:12)
[2017-09-14] MEDS: PRAVASTATIN SOD 20 MG TAB PO SCH (08:12)
[2017-09-14] MEDS: POTASSIUM CHLORIDE 10 MEQ CAP PO SCH (08:12)
[2017-09-14] MEDS: ASPIRIN 81 MG CHEW TAB CHEW SCH (08:13)
[2017-09-14] MEDS: LANSOPRAZOLE SOLUTAB 30 MG TAB NG SCH (08:13)
[2017-09-14] MEDS: GABAPENTIN 100 MG CAP PO SCH ×3 (09:00→17:45)
[2017-09-14] MEDS: MULTIVITAMINS/MINERALS THERAPEUTIC TAB PO SCH (09:00)
[2017-09-14 11:25] LABS: INTERNATIONAL NORMALIZED RATIO 1.1 RATIO; PROTHROMBIN TIME - PATIENT 10.7 SEC (9.8-11.6)
[2017-09-14] MEDS: LORazepam 1 MG TAB PO PRN (12:04)
--- NOTE | 2017-09-14 14:23 | HHI.PYPN ---
Subjective Remarks Patient seen in his room with floor staff, chart review, patient compliant medication. Patient states is feeling somewhat better the remains depressed, denies suicidality at this time. Still somewhat uncertain about placement when he leaves here. For now continue treatment Review of Systems Except as stated in HPI: all other systems reviewed are Neg Mental Status Examination Appearance: Appropriate Consciousness: Alert Orientation: Person, Place, Date/Time Speech: Unremarkable Language: Adequate Fund of Knowledge: Inadequate Attention and Concentration: Adequate Memory: Unremarkable Mood: Sad Affect: Sad Thought Process & Associations: Intact, Linear Thought Content: Appropriate Hallucination Type: None Delusion Type: None Suicidal Ideation: Yes Suicidal Plan: No Suicidal Intention: No Homicidal Ideation: No Homicidal Plan: No Homicidal Intention: No Insight: Fair Judgment: Impulsive Results Labs Test 09/14/17 10:00 Prothrombin Time 10.7 SEC Prothromb Time International Ratio 1.1 RATIO Vitals/IOs Vital Signs Date Time Temp Pulse Resp B/P (MAP) Pulse Ox O2 Delivery O2 Flow Rate FiO2 09/14/17 06:19 97.5 70 18 123/74 (90) 97 09/12/17 04:13 Room Air Intake and Output 09/14/17 09/14/17 09/15/17 08:00 16:00 00:00 Intake Total 840 ml 240 ml Balance 840 ml 240 ml Assessment & Plan Problem List: (1) Adjustment disorder with mixed anxiety and depressed mood ICD Codes: F43.23 - Adjustment disorder with mixed anxiety and depressed mood (2) Alcohol dependence ICD Codes: F10.20 - Alcohol dependence, uncomplicated Status: Acute Assessment & Plan Estimated LOS: days patient remains depressed confused E does denies suicidality at the present time. Compliant medication Justification for Cont. Inpt. At this time patient decompensate if placed in a lower level of care Discharge Planning Placement may remain problematic Request HC Surrog/Guard Advoc?: No Problem Qualifiers (1) Alcohol dependence: Qualified Codes: F10.29 - Alcohol dependence with unspecified alcohol-induced disorder Chad Ram MD Sep 14, 2017 14:23
[2017-09-14] MEDS: WARFARIN SOD 2 MG TAB PO SCH (16:45)
[2017-09-14] MEDS: hydrOXYzine HCL 50 MG TAB PO PRN (16:45)
[2017-09-14 17:30] VITALS: BP 128/87; PULSE 85; RESP 20; TEMP 97.7; O2SAT 97
[2017-09-14] MEDS: MIRTAZAPINE 15 MG TAB PO SCH (21:14)
[2017-09-14] MEDS: traZODone HCL 100 MG TAB PO SCH (21:15)
[2017-09-15 05:47] VITALS: BP 117/62; PULSE 79; RESP 17; TEMP 97.6; O2SAT 97
--- NOTE | 2017-09-15 07:45 | EKG ---
Date Performed: 09/13/2017 Time Performed: 12:46:14 PTAGE: 72 years EKG: Sinus rhythm with ectopic atrial rhythm with PACs MINIMAL VOLTAGE CRITERIA FOR LVH, CONSIDER NORMAL VARIANT Since previous tracing, no significant change noted ABNORMAL RHYTHM ECG PREVIOUS TRACING : 06/19/2015 11.47 DOCTOR: Jose Ahmadi Interpretating Date/Time 09/15/2017 09:53:13
[2017-09-15] MEDS: PRAVASTATIN SOD 20 MG TAB PO SCH (07:49)
[2017-09-15] MEDS: ARIPiprazole 5 MG TAB PO SCH (07:49)
[2017-09-15] MEDS: FUROSEMIDE 40 MG TAB PO SCH (07:49)
[2017-09-15] MEDS: LANSOPRAZOLE SOLUTAB 30 MG TAB NG SCH (07:49)
[2017-09-15] MEDS: ASPIRIN 81 MG CHEW TAB CHEW SCH (07:49)
[2017-09-15] MEDS: amLODIPine BESYLATE 5 MG TAB PO SCH (07:50)
[2017-09-15] MEDS: GABAPENTIN 100 MG CAP PO SCH ×3 (07:50→17:07)
[2017-09-15] MEDS: MULTIVITAMINS/MINERALS THERAPEUTIC TAB PO SCH (07:50)
[2017-09-15] MEDS: CELECOXIB 100 MG CAP PO SCH ×2 (07:50→20:55)
[2017-09-15] MEDS: POTASSIUM CHLORIDE 10 MEQ CAP PO SCH (07:50)
[2017-09-15 08:02] LABS: INTERNATIONAL NORMALIZED RATIO 1.1 RATIO; PROTHROMBIN TIME - PATIENT 10.7 SEC (9.8-11.6)
[2017-09-15] MEDS: LORazepam 1 MG TAB PO PRN (08:36)
[2017-09-15] MEDS: ACETAMINOPHEN 325 MG TAB PO PRN (10:44)
--- NOTE | 2017-09-15 11:11 | HHI.PYPN ---
Subjective Remarks Patient seen today in day room with nurse Jennifer, chart reviewed, patient compliant medication, today stating that the suicidality has resolved. Denies voices. States he would be willing to go back to [facility] until the end of the month. Which is paid for. It appears he has access to a D1G apartment starting September 30. Any wishes to move to that situation. For now continue treatment. Is reconsider the possibility of independent living Review of Systems Except as stated in HPI: all other systems reviewed are Neg Mental Status Examination Appearance: Appropriate Consciousness: Alert Orientation: Person, Place, Date/Time Speech: Unremarkable Language: Adequate Fund of Knowledge: Inadequate Attention and Concentration: Adequate Memory: Unremarkable Mood: Sad Affect: Sad Thought Process & Associations: Intact, Linear Thought Content: Appropriate Hallucination Type: None Delusion Type: None Suicidal Ideation: Yes Suicidal Plan: No Suicidal Intention: No Homicidal Ideation: No Homicidal Plan: No Homicidal Intention: No Insight: Fair Judgment: Impulsive Results Labs Test 09/15/17 07:02 Prothrombin Time 10.7 SEC Prothromb Time International Ratio 1.1 RATIO Vitals/IOs Vital Signs Date Time Temp Pulse Resp B/P (MAP) Pulse Ox O2 Delivery O2 Flow Rate FiO2 09/15/17 05:47 97.6 79 17 117/62 (80) 97 09/12/17 04:13 Room Air Intake and Output 09/15/17 09/15/17 09/16/17 08:00 16:00 00:00 Intake Total 0 ml 600 ml Balance 0 ml 600 ml Assessment & Plan Problem List: (1) Adjustment disorder with mixed anxiety and depressed mood ICD Codes: F43.23 - Adjustment disorder with mixed anxiety and depressed mood (2) Alcohol dependence ICD Codes: F10.20 - Alcohol dependence, uncomplicated Status: Acute Assessment & Plan Estimated LOS: days patient is mood is slowly improving, his compliant with medications, denies suicidality homicidality voices or visions. Now states is willing to go back to the [facility] until the end of the month and then transition to his own stud apartment Justification for Cont. Inpt. At this time patient decompensated placed a lower level of care Discharge Planning Patient now appears willing to return to [facility] Request HC Surrog/Guard Advoc?: No Problem Qualifiers (1) Alcohol dependence: Qualified Codes: F10.29 - Alcohol dependence with unspecified alcohol-induced disorder Chad Ram MD Sep 15, 2017 11:11
--- NOTE | 2017-09-15 14:57 | HHI.PR ---
Subjective Remarks Follow-up visit EtOH abuse, withdrawals. Patient was seen and examined today sitting in a chair. Reports he is doing better. States that he has some occasional tremors. Otherwise, denies pain and discomfort. Denies SOB/ dyspnea. Denies chest pain, palpitations, headaches, dizziness. Denies fevers, chills, n/v/d. Spoke with nursing, no acute issues overnight. Plan to discharge to a facility PRISON Objective Vitals Vital Signs Date Time Temp Pulse Resp B/P (MAP) Pulse Ox O2 Delivery O2 Flow Rate FiO2 09/15/17 05:47 97.6 79 17 117/62 (80) 97 09/14/17 17:30 97.7 85 20 128/87 (101) 97 I/O 09/14/17 09/14/17 09/14/17 09/15/17 09/15/17 09/15/17 07:00 15:00 23:00 07:00 15:00 23:00 Intake Total 720 ml 1080 ml 480 ml 0 ml 840 ml Balance 720 ml 1080 ml 480 ml 0 ml 840 ml Intake Oral 720 ml 1080 ml 480 ml 0 ml 840 ml # Voids 2 4 2 1 # Bowel Movements 0 Result Diagram: 09/11/17 1910 09/13/17 0930 Imaging Last Impressions Head CT 09/11/17 0000 Signed Impressions: Service Date/Time: Monday, September 11, 2017 19:19 - CONCLUSION: No acute findings in the brain. Hung Rojas MD Cervical Spine CT 09/11/17 0000 Signed Impressions: Service Date/Time: Monday, September 11, 2017 19:19 - CONCLUSION: No evidence of fracture or spondylolisthesis. Multilevel fusions. Hung Rojas MD Objective Remarks GENERAL: This is a well-nourished, well-developed patient, in no apparent distress. SKIN: Warm and dry. HEENT: Normocephalic. Pupils equal round and reactive. Nose without bleeding. Airway patent. NECK: Trachea midline. No JVD. Supple. CARDIOVASCULAR: Regular rate and rhythm without murmurs, gallops, or rubs. RESPIRATORY: Clear to auscultation. Breath sounds equal bilaterally. No wheezes , rales, or rhonchi. GASTROINTESTINAL: Abdomen soft, non-tender, nondistended. Bowel Sounds normoactive x4. MUSCULOSKELETAL: Extremities without clubbing, cyanosis, or edema. NEUROLOGICAL: Awake and alert. Mild tremors bilateral hands. No focal neuro deficit. Moves all extremities. Normal speech. A/P Problem List: (1) Adjustment disorder with mixed anxiety and depressed mood ICD Code: F43.23 - Adjustment disorder with mixed anxiety and depressed mood (2) Depression ICD Code: F32.9 - Major depressive disorder, single episode, unspecified Status: Acute (3) Alcohol dependence ICD Code: F10.20 - Alcohol dependence, uncomplicated Status: Acute Assessment and Plan Patient is a 72 year old male admitted with Depression, suicidal ideations, and alcohol withdraw. Depression Suicidal Ideations - management by psychiatry team ETOH Withdraw Delirium Tremens - Presently controlled - CIWA Protocol - PRN Ativan, previously on Librium - No DTs reported HTN Urgency CHF exacerbation HLD - Continue Norvasc 5 mg daily, aspirin 81 mg daily, Lasix 40 mg daily, KCl, pravastatin 20 mg daily - Improve BP trend Hx of Stomach Ulcers Hx of Leukemia - No active disase - Follow clinically GERD - Lansoprazole DVT Prophylaxis Patient ambulatory Stable from Hospitalist standpoint. We will sign off. Reconsult as needed. Medically cleared for discharge. Follow-up with PCP to repeat lipid profile in 3 months Problem Qualifiers (1) Depression: Qualified Codes: F33.1 - Major depressive disorder, recurrent, moderate (2) Alcohol dependence: Qualified Codes: F10.29 - Alcohol dependence with unspecified alcohol-induced disorder Mahendra Crews Sep 15, 2017 14:57
[2017-09-15] MEDS: WARFARIN SOD 2 MG TAB PO SCH (17:07)
[2017-09-15 18:21] VITALS: BP 155/85; PULSE 79; RESP 18; TEMP 98.6; O2SAT 100
[2017-09-15] MEDS: MIRTAZAPINE 15 MG TAB PO SCH (20:55)
[2017-09-15] MEDS: traZODone HCL 100 MG TAB PO SCH (20:56)
[2017-09-16 05:42] VITALS: BP 184/82; PULSE 74; RESP 16; TEMP 97.6; O2SAT 98
[2017-09-16 08:29] LABS: PROTHROMBIN TIME - PATIENT 10.6 SEC (9.8-11.6)
[2017-09-16] MEDS: amLODIPine BESYLATE 5 MG TAB PO SCH (08:49)
[2017-09-16] MEDS: PRAVASTATIN SOD 20 MG TAB PO SCH (08:49)
[2017-09-16] MEDS: CELECOXIB 100 MG CAP PO SCH ×2 (08:49→20:43)
[2017-09-16] MEDS: FUROSEMIDE 40 MG TAB PO SCH (08:50)
[2017-09-16] MEDS: MULTIVITAMINS/MINERALS THERAPEUTIC TAB PO SCH (08:50)
[2017-09-16] MEDS: ARIPiprazole 5 MG TAB PO SCH (08:50)
[2017-09-16] MEDS: ASPIRIN 81 MG CHEW TAB CHEW SCH (08:50)
[2017-09-16] MEDS: GABAPENTIN 100 MG CAP PO SCH ×3 (08:50→17:17)
[2017-09-16] MEDS: LANSOPRAZOLE SOLUTAB 30 MG TAB NG SCH (08:50)
[2017-09-16] MEDS: POTASSIUM CHLORIDE 10 MEQ CAP PO SCH (08:50)
[2017-09-16] MEDS: LORazepam 1 MG TAB PO PRN (09:16)
--- NOTE | 2017-09-16 14:32 | HHI.PYPN ---
Subjective Remarks Patient seen in dayroom with medical student Alfredo, chart reviewed, patient compliant medication. Patient excited about possible discharge tomorrow [facility] of [facility]. It appears to be a bed available for him tomorrow. Patient denies suicidality homicidality voices or visions. Is quite excited about this opportunity. For now continue treatment consider discharge tomorrow Review of Systems Except as stated in HPI: all other systems reviewed are Neg Mental Status Examination Appearance: Appropriate Consciousness: Alert Orientation: Person, Place, Date/Time Speech: Unremarkable Language: Adequate Fund of Knowledge: Inadequate Attention and Concentration: Adequate Memory: Unremarkable Mood: Sad Affect: Sad Thought Process & Associations: Intact, Linear Thought Content: Appropriate Hallucination Type: None Delusion Type: None Suicidal Ideation: Yes Suicidal Plan: No Suicidal Intention: No Homicidal Ideation: No Homicidal Plan: No Homicidal Intention: No Insight: Fair Judgment: Impulsive Results Labs Test 09/16/17 07:05 Prothrombin Time 10.6 SEC Prothromb Time International Ratio 1.0 RATIO Vitals/IOs Vital Signs Date Time Temp Pulse Resp B/P (MAP) Pulse Ox O2 Delivery O2 Flow Rate FiO2 09/16/17 05:42 97.6 74 16 184/82 (116) 98 Assessment & Plan Problem List: (1) Adjustment disorder with mixed anxiety and depressed mood ICD Codes: F43.23 - Adjustment disorder with mixed anxiety and depressed mood (2) Alcohol dependence ICD Codes: F10.20 - Alcohol dependence, uncomplicated Status: Acute Assessment & Plan Estimated LOS: days patient excited about probable discharge tomorrow siblings [facility] he denies suicidality homicidality voices or visions Justification for Cont. Inpt. Patient to be discharged tomorrow to sober living from [facility] Discharge Planning See above Request HC Surrog/Guard Advoc?: No Problem Qualifiers (1) Alcohol dependence: Qualified Codes: F10.29 - Alcohol dependence with unspecified alcohol-induced disorder Chad Ram MD Sep 16, 2017 14:32
[2017-09-16] MEDS: WARFARIN SOD 2 MG TAB PO SCH (15:45)
[2017-09-16 17:42] VITALS: BP 150/73; PULSE 74; RESP 16; TEMP 98.7; O2SAT 98
[2017-09-16] MEDS: MIRTAZAPINE 15 MG TAB PO SCH (20:43)
[2017-09-16] MEDS: traZODone HCL 100 MG TAB PO SCH (20:43)
[2017-09-17 06:12] VITALS: BP 137/80; PULSE 76; RESP 15; TEMP 98.2
[2017-09-17] MEDS: LANSOPRAZOLE SOLUTAB 30 MG TAB NG SCH (08:04)
[2017-09-17] MEDS: ASPIRIN 81 MG CHEW TAB CHEW SCH (08:04)
[2017-09-17] MEDS: FUROSEMIDE 40 MG TAB PO SCH (08:04)
[2017-09-17] MEDS: GABAPENTIN 100 MG CAP PO SCH (08:04)
[2017-09-17] MEDS: POTASSIUM CHLORIDE 10 MEQ CAP PO SCH (08:04)
[2017-09-17] MEDS: amLODIPine BESYLATE 5 MG TAB PO SCH (08:04)
[2017-09-17] MEDS: MULTIVITAMINS/MINERALS THERAPEUTIC TAB PO SCH (08:04)
[2017-09-17] MEDS: CELECOXIB 100 MG CAP PO SCH (08:05)
[2017-09-17] MEDS: PRAVASTATIN SOD 20 MG TAB PO SCH (08:05)
[2017-09-17] MEDS: ARIPiprazole 5 MG TAB PO SCH (08:06)
[2017-09-17] MEDS: LORazepam 1 MG TAB PO PRN (08:42)
[2017-09-17] MEDS ORDERED: PRAV20TA2 PO (09:02)
[2017-09-17] MEDS ORDERED: ASPI-516 CHEW (09:02)
[2017-09-17] MEDS ORDERED: POTA10CA PO (09:02)
[2017-09-17] MEDS ORDERED: GABA100C4 PO (09:02)
[2017-09-17] MEDS ORDERED: ARIP1TAB11 PO (09:02)
[2017-09-17] MEDS ORDERED: CELE100C PO (09:02)
[2017-09-17] MEDS ORDERED: MIRTA15 PO (09:02)
[2017-09-17] MEDS ORDERED: FURO40TA PO (09:02)
[2017-09-17] MEDS ORDERED: COUM2TAB PO (09:02)
[2017-09-17] MEDS ORDERED: TRAZ100T10 PO (09:02)
[2017-09-17] MEDS ORDERED: AMLO5TAB2 PO (09:02)
--- NOTE | 2017-09-17 09:07 | HHI.DS ---
Psychiatry Discharge Summary Inpatient Psychiatric care?: Yes Advance Directive: No Reason Not Provided: Due to Patient Condition Mental Health AdvanceDirective: No Health Care Proxy: No Admission Admission Date Sep 12, 2017 at 10:04 Admission Diagnosis: (1) Alcohol dependence ICD Code: F10.20 - Alcohol dependence, uncomplicated (2) Adjustment disorder with mixed anxiety and depressed mood ICD Code: F43.23 - Adjustment disorder with mixed anxiety and depressed mood Brief History Patient is a 72-year-old man, , domiciled in [facility] since November 2016 , with past psychiatric history significant for depression, recent alcohol abuse , no psychiatric admissions, no suicide attempt or self-injurious behavior with a past medical history significant for hypertension, arthritis, asthma, was brought in by friends to the ED due to recent alcohol intoxication as well as having endorsed to his friends that he wanted to end his life which psychiatry was consulted for evaluation. Patient was found sitting in hospital bed, cooperative. Patient states that he was brought in by his friends because he was feeling depressed as well as having frequent falls secondary to alcohol abuse recently. Patient states that he has not been happy at his assisted living facility and had noticed to have compounded his depression that he had been experiencing since the passing of his close friend over a year ago. He reports having decreased sleep, appetite, energy, along with feeling depressed and feeling helpless and hopeless at times but denies any suicide ideations otherwise for ED note at endorses to his friends. Patient also reports and had frequent falls recently due to his alcohol intoxication which has increased recently. Patient this time reports feeling "okay" denies any SI, HI, perception service of delusions. Patient requests voluntary admission to start antidepressant treatment as well as address his recent alcohol abuse. Family history: Denies Past psychiatric history: 3 psychiatric diagnoses of depression, denies previous hospitalization, suicide attempts of his behavior, denies any history of abuse. Patient reports having been treated for depression by his primary care doctor, Dr. Barrios which she has been prescribed trazodone and Ativan. Patient reports remote use of Thorazine 13 years ago. Substance use history: Tobacco use, alcohol use daily for the past week last drink was 2 days ago denies any illicit drug use. Past medical history: Asthma, hypertension, arthritis Social history: , domicile in [facility] since November 2016, no legal history. Collateral contacts include friends (Ginger Kovacs - [phone]) Tobacco Use In Past 30 Days: Refused To Answer Alcohol Use: 4 or More Times Per Week Hospital Course Patient's hospital course was uneventful, treating no significant signs of withdrawal from his alcohol abuse. Initial compliance with his medication. Appeared to have some understanding of insight into his need for sobriety to find an appropriate safe placement. He is been compliant with his medications. Has been no behavioral problems or issues. At this time I feel patient has reached maximum benefit of this hospitalization. We have found about placement for him at [facility] , [facility] for [facility]. Patient was discharged with Rx 1 month also follow through [facility] for his mental health assessment and treatment Results Blood Pressure 137 / 80 Vital Signs Date Time Temp Pulse Resp B/P (MAP) Pulse Ox O2 Delivery O2 Flow Rate FiO2 09/17/17 06:12 98.2 76 15 137/80 (99) 09/16/17 17:42 98 Laboratory Tests Test 09/14/17 10:00 09/15/17 07:02 09/16/17 07:05 Laboratory Results Test 09/13/17 09:30 Cholesterol Level 246 MG/DL (120-200) HDL Cholesterol 98.2 MG/DL (40.0-60.0) Hemoglobin A1c 5.0 % (4.3-6.0) LDL Cholesterol 124 MG/DL (0-99) Triglycerides Level 117 MG/DL (42-150) Summary of Procedures None done Imaging Last Impressions Head CT 09/11/17 0000 Signed Impressions: Service Date/Time: Monday, September 11, 2017 19:19 - CONCLUSION: No acute findings in the brain. Hung Rojas MD Cervical Spine CT 09/11/17 0000 Signed Impressions: Service Date/Time: Monday, September 11, 2017 19:19 - CONCLUSION: No evidence of fracture or spondylolisthesis. Multilevel fusions. Hung Rojas MD Pending results at discharge: No Medications # of Antipsychotic meds at D/C: 1 Approp Antipsych med options 1 - Minimum of three failed multiple trials of monotherapy. 2 - Documented plan to taper to monotherapy due to previous use of multiple meds OR cross-taper in progress at D/C. 3 - Documentation of augmentation of Clozapine. 4 - Justification other than those listed in allowable values 1-3, document here : Discharge Discharge Date: Sep 17, 2017 Discharge Diagnosis: (1) Adjustment disorder with mixed anxiety and depressed mood Diagnosis: Principal ICD Code: F43.23 - Adjustment disorder with mixed anxiety and depressed mood (2) Alcohol dependence Diagnosis: Secondary ICD Code: F10.20 - Alcohol dependence, uncomplicated Status: Acute Pt Condition on Discharge: Stable Discharge Disposition: Discharge Home Discharge Instructions Diet Instructions: As Tolerated, No Restrictions Activities you can perform: Regular-No Restrictions Scheduled Appointment: Akash Sevilla Appointment Date: Sep 20, 2017 Appointment Time: 730am Discharge Time > 30 minutes Mental Status Examination Appearance: Appropriate Consciousness: Alert Orientation: Person, Place, Date/Time Speech: Unremarkable Language: Adequate Fund of Knowledge: Inadequate Attention and Concentration: Adequate Memory: Unremarkable Mood: Sad Affect: Sad Thought Process & Associations: Intact, Linear Thought Content: Appropriate Hallucination Type: None Delusion Type: None Suicidal Ideation: Yes Suicidal Plan: No Suicidal Intention: No Homicidal Ideation: No Homicidal Plan: No Homicidal Intention: No Insight: Fair Judgment: Impulsive Discharge/Advance Care Plan Health Problems: (1) Adjustment disorder with mixed anxiety and depressed mood (2) Alcohol dependence Goals to promote your health * To prevent worsening of your condition and complications * To maintain your health at the optimal level Directions to meet your goals Take your medications as prescribed Follow your dietary instruction Follow activity as directed Keep your appointments as scheduled Take your immunizations and boosters as scheduled If your symptoms worsen call your PCP, if no PCP go to Urgent Care Center or Emergency Room For 22/02 questions related to your inpatient stay or results of tests pending at discharge, please contact Dr. Chad Ram at Smoking is Dangerous to Your Health. Avoid second hand smoking Problem Qualifiers (1) Alcohol dependence: Qualified Codes: F10.29 - Alcohol dependence with unspecified alcohol-induced disorder Chad Ram MD Sep 17, 2017 09:07
[2017-09-17 10:11] LABS: INTERNATIONAL NORMALIZED RATIO 1.1 RATIO; PROTHROMBIN TIME - PATIENT 10.8 SEC (9.8-11.6)
== END 2017-09-17 10:15 | disposition short-term general hospital (02) | DRG 882 ==
LOC: NEPE 18:09 → NEDA 09-12 10:04 → H250 09-12 11:30
PROVIDERS: ADMIT Psychiatry & Neurology Psychiatry; ATTEND Psychiatry & Neurology Psychiatry
DX: F43.23 Adjustment disorder with mixed anxiety and depressed mood (principal); F10.231 Alcohol dependence with withdrawal delirium; R45.851 Suicidal ideations; I11.0 Hypertensive heart disease with heart failure; I50.9 Heart failure, unspecified; F33.1 Major depressive disorder, recurrent, moderate; R29.6 Repeated falls; N40.0 Benign prostatic hyperplasia without lower urinary tract symptoms; F41.1 Generalized anxiety disorder; E78.5 Hyperlipidemia, unspecified; K21.9 Gastro-esophageal reflux disease without esophagitis; I25.10 Atherosclerotic heart disease of native coronary artery without angina pectoris; F17.210 Nicotine dependence, cigarettes, uncomplicated; I16.0 Hypertensive urgency; M19.90 Unspecified osteoarthritis, unspecified site; F41.9 Anxiety disorder, unspecified; Y90.4 Blood alcohol level of 80-99 mg/100 ml; J45.909 Unspecified asthma, uncomplicated; Z95.5 Presence of coronary angioplasty implant and graft; Z85.6 Personal history of leukemia; Z79.82 Long term (current) use of aspirin
CPT/HCPCS: 70450; 72125; 80048; 80053; 80061; 80307; 83036; 84443; 85025; 85610; 93005; 96361; 96374; J2060; J7030